=== PATIENT | male | born 1990 | race Caucasian/White ===

== ENCOUNTER 2017-12-12 16:03 | Emergency (ER) | payer BC ==
[~2017-12-12] VITALS: Ht 180.3 cm; Wt 96.2 kg
[2017-12-12 16:08] VITALS: TEMP 36.9; Ht 180.3 cm; Wt 96.2 kg
[2017-12-12 16:33] LABS: BASO % 0.3 %; BASO ABS # 0.02 K/uL (0-0.2); EOS % 1.7 %; EOS ABS # 0.11 K/uL (0-0.5); HEMATOCRIT 46.1 % (42-52); HEMOGLOBIN 16.2 g/dL (14.0-18.0); IG# 0.01 K/uL (0.00-0.02); LYMPH ABS # 1.58 K/uL (1.2-3.4); MEAN CELL VOLUME 87.6 fL (80-100); MEAN CORPUSCULAR HEMOGLOBIN 30.8 pg (25-34); MEAN CORPUSCULAR HGB CONC 35.1 g/dl (32-36); MONO % 5.6 %; MONO ABS # 0.37 K/uL (0.11-0.59); NEUT % 68.2 %; NEUT ABS # 4.48 K/uL (1.4-6.5); PLATELET COUNT 221 K/uL (130-400); RED CELL DISTRIBUTION WIDTH CV 12.2 % (11.5-14.5); RED CELL DISTRIBUTION WIDTH SD 38.9 fL (36.4-46.3); WHITE BLOOD COUNT 6.57 K/uL (4.8-10.8)
[2017-12-12 16:49] LABS: ALBUMIN 4.2 gm/dl (3.4-5.0); CALCIUM 8.9 mg/dl (8.5-10.1); CREATININE 1.15 mg/dl (0.60-1.40)
[2017-12-12 16:53] LABS: TOTAL PROTEIN 7.6 gm/dl (6.4-8.2)
[2017-12-12 16:56] LABS: POTASSIUM 3.6 mmol/L (3.5-5.1)
[2017-12-12] MEDS ORDERED: CLR10 PO (16:56)
[2017-12-12] MEDS ORDERED: ST J PO (16:56)
[2017-12-12] MEDS ORDERED: [UNRECOGNIZED DRUG - CODE] PO (16:56)
[2017-12-12] MEDS ORDERED: OMEG10007 PO (16:56)
--- NOTE | 2017-12-12 16:57 | DIAGNOSTIC IMAGING REPORT ---
CT SCAN OF THE ABDOMEN AND PELVIS WITHOUT IV CONTRAST CLINICAL HISTORY: Right flank pain. Dysuria. COMPARISON STUDY: No priors. TECHNIQUE: CT scan of the abdomen and pelvis is performed from the lung bases to the proximal femora. Images are reviewed in the axial, sagittal, and coronal planes. IV contrast was not administered for this examination as per the referring clinician. A dose lowering technique was utilized adhering to the principles of ALARA. CT DOSE: 473.48 mGy.cm FINDINGS: Lung bases: The heart is normal in size and without pericardial effusion. The lung bases are clear. Liver: The unenhanced liver is normal in size, contour, and attenuation. There is no intrahepatic biliary ductal dilatation. Gallbladder: Unremarkable. Spleen: Normal in size and attenuation. Pancreas: Unremarkable. Adrenal glands: Unremarkable. Kidneys: The unenhanced kidneys are normal in size and without hydronephrosis. There is a 2 mm nonobstructing calculus in the lower pole of the right kidney. There are at least 2 small nonobstructing calculi in the lower pole of the left kidney. There is no evidence of contour deforming renal mass lesion. Abdominal vasculature: The abdominal aorta is normal in course and caliber. Bowel: The small bowel and colon are normal in course and caliber. The appendix is well-visualized and normal. Peritoneum: There is no intraperitoneal free air or abdominal ascites. There is a small fat-containing umbilical hernia. Lymphadenopathy: None. Pelvic viscera: The bladder is partially decompressed and grossly unremarkable. The prostate and seminal vesicles are normal as imaged. Skeletal structures: No lytic or blastic lesions are seen. 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 IMPRESSION: 1. There are no acute infectious or inflammatory findings in the abdomen or pelvis. 2. There are tiny bilateral nonobstructing renal calculi. Electronically signed by: Kirk Back M.D. 12/12/2017 4:56 PM Dictated Date/Time: 12/12/2017 4:49 PM
--- NOTE | 2017-12-12 17:34 | EMERGENCY ROOM VISIT NOTE ---
History Report prepared by Aj: Dann Myrick Under the Supervision of: Dr. Noe Davenport D.O. First contact with patient: 16:13 Chief Complaint: FLANK PAIN Stated Complaint: KIDNEY HURTS History of Present Illness The patient is a 27 year old male who presents to the Emergency Room with complaints of waxing and waning right flank pain beginning two days ago. He also complains of an episode of urinary symptoms, and shivering occurring with his pain two days ago. He describes his current pain as a "soreness". The patient states that his pain is present with urination. He has no known history of kidney stones. He has had a few intermittent episodes of diarrhea recently. The patient denies any vomiting, and groin or testicular pain or swelling. Source of History: patient Onset: Two days ago Position: other (right flank) Quality: other ("soreness") Timing: waxes/wanes Associated Symptoms: + diarrhea (intermittent), + urinary symptoms, No vomiting, No rash Note: The patient denies groin or testicular pain or swelling. Review of Systems See HPI for pertinent positives & negatives. A total of 10 systems reviewed and were otherwise negative. Past Medical & Surgical Medical Problems: (1) No Known Active Medical Problems Family History No pertinent family history stated. Social History Smoking Status: Never Smoker Current/Historical Medications Scheduled Fish Oil ([place]-3), 2-3 CAP PO DAILY Loratadine (Claritin), 10 MG PO DAILY Clint's Wort ([place] Perf (St Shell Wort), 900 MG PO DAILY Scheduled PRN Papaya (Papaya), 4 TABS PO DAILY PRN for INFLAMATION Allergies Coded Allergies: Clarithromycin (Verified Allergy, Intermediate, HIVES, 12/12/17) Uncoded Allergies: NON-IONIC IODINE CONTRAST (Allergy, Severe, ANAPHYLAXIS, 12/12/17) Physical Exam Vital Signs Date Time Temp Pulse Resp B/P (MAP) Pulse Ox O2 Delivery O2 Flow Rate FiO2 12/12/17 17:49 66 20 133/64 100 Room Air 12/12/17 16:08 36.9 82 20 157/98 96 Room Air Physical Exam GENERAL: Patient is awake, alert, and in no acute distress. Patient is resting comfortably and showing no signs of anxiety EYES: The conjunctivae are clear. The pupils are round and reactive. EARS, NOSE, MOUTH AND THROAT: The nose is without any evidence of any deformity. Mucous membranes are moist tongue is midline NECK: The neck is nontender and supple. RESPIRATORY: Normal respiratory effort is noted there is no evidence of wheezing rhonchi or rales CARDIOVASCULAR: Regular rate and rhythm noted there no murmurs rubs or gallops normal S1 normal S2 GASTROINTESTINAL: The abdomen is mildly distended but soft. Mild tenderness to the RLQ. No guarding or rigidity. MUSCULOSKELETAL/EXTREMITIES: There is no evidence of gross deformity full range of motion is noted in the hips and shoulders SKIN: There is no obvious evidence of any rash. There are no petechiae, pallor or cyanosis noted. NEUROLOGIC: Patient is awake alert and oriented x3 strength is symmetric patellar reflexes are 2+ bilaterally Medical Decision & Procedures ER Provider Diagnostic Interpretation: Radiology results as stated below per my review and radiologist interpretation: CT SCAN OF THE ABDOMEN AND PELVIS WITHOUT IV CONTRAST FINDINGS: Lung bases: The heart is normal in size and without pericardial effusion. The lung bases are clear. Liver: The unenhanced liver is normal in size, contour, and attenuation. There is no intrahepatic biliary ductal dilatation. Gallbladder: Unremarkable. Spleen: Normal in size and attenuation. Pancreas: Unremarkable. Adrenal glands: Unremarkable. Kidneys: The unenhanced kidneys are normal in size and without hydronephrosis. There is a 2 mm nonobstructing calculus in the lower pole of the right kidney. There are at least 2 small nonobstructing calculi in the lower pole of the left kidney. There is no evidence of contour deforming renal mass lesion. Abdominal vasculature: The abdominal aorta is normal in course and caliber. Bowel: The small bowel and colon are normal in course and caliber. The appendix is well-visualized and normal. Peritoneum: There is no intraperitoneal free air or abdominal ascites. There is a small fat-containing umbilical hernia. Lymphadenopathy: None. Pelvic viscera: The bladder is partially decompressed and grossly unremarkable. The prostate and seminal vesicles are normal as imaged. Skeletal structures: No lytic or blastic lesions are seen. 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 IMPRESSION: 1. There are no acute infectious or inflammatory findings in the abdomen or pelvis. 2. There are tiny bilateral nonobstructing renal calculi. Electronically signed by: Kirk Back M.D. 12/12/2017 4:56 PM Laboratory Results 12/12/17 16:21 Red Blood Count 5.26, Mean Corpuscular Volume 87.6, Mean Corpuscular Hemoglobin 30.8, Mean Corpuscular Hemoglobin Concent 35.1, Mean Platelet Volume 10.0, Neutrophils (%) (Auto) 68.2, Lymphocytes (%) (Auto) 24.0, Monocytes (%) (Auto) 5.6, Eosinophils (%) (Auto) 1.7, Basophils (%) (Auto) 0.3, Neutrophils # (Auto) 4.48, Lymphocytes # (Auto) 1.58, Monocytes # (Auto) 0.37, Eosinophils # (Auto) 0.11, Basophils # (Auto) 0.02 12/12/17 16:21 Test 12/12/17 16:21 White Blood Count 6.57 K/uL (4.8-10.8) Red Blood Count 5.26 M/uL (4.7-6.1) Hemoglobin 16.2 g/dL (14.0-18.0) Hematocrit 46.1 % (42-52) Mean Corpuscular Volume 87.6 fL (80-100) Mean Corpuscular Hemoglobin 30.8 pg (25-34) Mean Corpuscular Hemoglobin Concent 35.1 g/dl (32-36) Platelet Count 221 K/uL (130-400) Mean Platelet Volume 10.0 fL (7.4-10.4) Neutrophils (%) (Auto) 68.2 % Lymphocytes (%) (Auto) 24.0 % Monocytes (%) (Auto) 5.6 % Eosinophils (%) (Auto) 1.7 % Basophils (%) (Auto) 0.3 % Neutrophils # (Auto) 4.48 K/uL (1.4-6.5) Lymphocytes # (Auto) 1.58 K/uL (1.2-3.4) Monocytes # (Auto) 0.37 K/uL (0.11-0.59) Eosinophils # (Auto) 0.11 K/uL (0-0.5) Basophils # (Auto) 0.02 K/uL (0-0.2) RDW Standard Deviation 38.9 fL (36.4-46.3) RDW Coefficient of Variation 12.2 % (11.5-14.5) Immature Granulocyte % (Auto) 0.2 % Immature Granulocyte # (Auto) 0.01 K/uL (0.00-0.02) Urine Color YELLOW Urine Appearance CLEAR (CLEAR) Urine pH 5.5 (4.5-7.5) Urine Specific [place] 1.019 (1.000-1.030) Urine Protein NEG (NEG) Urine Glucose (UA) NEG (NEG) Urine Ketones NEG (NEG) Urine Occult Blood NEG (NEG) Urine Nitrite NEG (NEG) Urine Bilirubin NEG (NEG) Urine Urobilinogen NEG (NEG) Urine Leukocyte Esterase NEG (NEG) Anion Gap 6.0 mmol/L (3-11) Est Creatinine Clear Calc Drug Dose 113.1 ml/min Estimated GFR () 99.8 Estimated GFR (Non- 86.1 BUN/Creatinine Ratio 10.9 (10-20) Calcium Level 8.9 mg/dl (8.5-10.1) Total Bilirubin 0.4 mg/dl (0.2-1) Direct Bilirubin 0.1 mg/dl (0-0.2) Aspartate Amino Transf (AST/SGOT) 18 U/L (15-37) Alanine Aminotransferase (ALT/SGPT) 36 U/L (12-78) Alkaline Phosphatase 61 U/L (45-117) Total Protein 7.6 gm/dl (6.4-8.2) Albumin 4.2 gm/dl (3.4-5.0) Lipase 148 U/L (73-393) Laboratory results per my review. ED Course 1623: The patient was evaluated in room C1B. A complete history and physical examination were performed. 1719: Upon reevaluation, the patient is resting comfortably. I discussed the results and treatment plan with him. He verbalized agreement of the treatment plan. The patient was discharged home. Medical Decision Differential diagnosis: Etiologies such as renal colic, appendicitis, diverticulitis, mesenteric ischemia, aortic pathology, infections, inflammatory bowel disease, PUD, biliary pathology, UTI, as well as others were entertained. Nursing notes reviewed. The patient is a 27-year-old male who presented to the emergency department for an evaluation of right-sided pain. The patient was found have bilateral punctate renal calculi. His pain was improved without any specific treatment. At this time I I feel is possible the patient may have passed a kidney stone. I discussed the patient's laboratory and radiographic studies with him. He was encouraged to continue drinking plenty clear liquids and follow-up with his primary care physician for further evaluation. I recommended that he continue using Motrin and Tylenol for pain and return to the emergency department immediately if symptoms change worsen or the need arises. Medication Reconcilliation Current Medication List: was personally reviewed by me Blood Pressure Screening Patient's blood pressure: Elevated blood pressure Blood pressure disposition: Elevated BP felt to be situational Impression Primary Impression: Right flank pain Additional Impression: Kidney stones Scribe Attestation The scribe's documentation has been prepared under my direction and personally reviewed by me in its entirety. I confirm that the note above accurately reflects all work, treatment, procedures, and medical decision making performed by me. Departure Information Dispostion Home / Self-Care Referrals No Doctor, Assigned (PCP) Forms HOME CARE DOCUMENTATION FORM, IMPORTANT VISIT INFORMATION Patient Instructions Abdominal Pain, Kidney Stones, My [facility] Additional Instructions Continue all medications as prescribed. Continue to use Motrin and Tylenol as directed for pain. Call your family to schedule follow-up appointment. Return to the emergency department immediately symptoms change worsen or the need arises. Problem Qualifiers
[2017-12-12 17:49] VITALS: BP 133/64; PULSE 66; O2SAT 100
== END 2017-12-12 18:22 | disposition home or self-care (01) ==
LOC: C.EDB 16:06 → C.EDC 18:22
DX: R10.9 Unspecified abdominal pain (principal); N20.0 Calculus of kidney